=== PATIENT | female | born 1960 | race Caucasian/White ===

== ENCOUNTER 2021-09-27 10:00 | Observation (INO) ==
[2021-09-27] MEDS ORDERED: Naloxone 0.4 MG/ML INJ IVP PRN (10:59)
[2021-09-27] MEDS ORDERED: Melatonin 3 MG TABLET PO PRN (10:59)
[2021-09-27 11:49] LABS: Basophils % 0.3 %; Eosinophils # 0.5 K/mcL (0.0-0.6); Eosinophils % 4.8 %; Immature Granulocytes % 0.5 % (0-4); Lymphocytes # 3.1 K/mcL (0.6-4.6); Lymphocytes % 30.2 %; Mean Corpuscular HGB Conc 31.6 g/dL (31.6-35.5); Mean Corpuscular Hemoglobin 28.6 pg (28.0-33.3); Mean Corpuscular Volume 90.5 fL (83.0-100.0); Mean Platelet Volume 9.6 fL (9.4-12.4); Monocytes # 0.6 K/mcL (0.0-1.3); Platelet Count 270 K/mcL (140-400); Red Cell Distribution Width 14.9 % (11.5-14.5); Segmented Neutrophils % 58.2 %; White Blood Count 10.2 K/mcL (4.3-11.1)
[2021-09-27 12:08] LABS: Calcium 9.5 mg/dL (8.6-10.3); Magnesium 1.3 mg/dL (1.6-2.6); Potassium 3.9 mEq/L (3.5-5.1)
[2021-09-27] MEDS ORDERED: D5% in Water 1,000 ML IVC PRN (12:58)
[2021-09-27] MEDS ORDERED: *HR* Dextrose 50 % in Water (Syg) 50 ML SYRINGE IVP PRN (12:58)
[2021-09-27] MEDS ORDERED: Dextrose Gel 15 GM/37.5 ML TUBE PO PRN ×2 (12:58)
[2021-09-27] MEDS: Gabapentin 400 MG CAPSULE PO SCH ×2 (14:05→21:41)
[2021-09-27] MEDS: *HR* Metformin 500 MG TABLET PO SCH (16:43)
[2021-09-27] MEDS: traZODone 50 MG TABLET PO SCH (21:39)
[2021-09-27] MEDS: *HR* Dabigatran 150 MG CAPSULE PO SCH (21:41)
[2021-09-28 03:19] LABS: Magnesium 2.1 mg/dL (1.6-2.6); Potassium 3.6 mEq/L (3.5-5.1)
[2021-09-28] MEDS: lisinopriL 20 MG TABLET PO SCH (08:29)
[2021-09-28] MEDS: *HR* Metformin 500 MG TABLET PO SCH ×2 (08:36→17:38)
[2021-09-28] MEDS: *HR* Dabigatran 150 MG CAPSULE PO SCH ×2 (08:36→22:10)
[2021-09-28] MEDS: Gabapentin 400 MG CAPSULE PO SCH ×3 (08:36→22:10)
[2021-09-28] MEDS: Metoprolol XL (24 HR) Succ 50 MG TAB.ER.24H PO SCH (08:36)
[2021-09-28] MEDS: *HR* GlipiZIDE XL (24 HR) 10 MG TABLET PO SCH (08:36)
[2021-09-28] MEDS: Furosemide 20 MG TABLET PO SCH (08:36)
[2021-09-28] MEDS ORDERED: lisinopriL 20 MG TABLET PO SCH (09:00)
[2021-09-28] MEDS: traZODone 50 MG TABLET PO SCH (22:10)
[2021-09-28 23:01] VITALS: O2SAT 92
[2021-09-29 06:45] VITALS: TEMP 98.4
[2021-09-29 08:02] VITALS: BP 121/73; PULSE 86
[2021-09-29] MEDS: *HR* Dabigatran 150 MG CAPSULE PO SCH (08:18)
[2021-09-29] MEDS: Furosemide 20 MG TABLET PO SCH (08:18)
[2021-09-29] MEDS: *HR* GlipiZIDE XL (24 HR) 10 MG TABLET PO SCH (08:18)
[2021-09-29] MEDS: Gabapentin 400 MG CAPSULE PO SCH (08:18)
[2021-09-29] MEDS: lisinopriL 20 MG TABLET PO SCH (08:18)
[2021-09-29] MEDS: Metoprolol XL (24 HR) Succ 50 MG TAB.ER.24H PO SCH (08:18)
[2021-09-29] MEDS: *HR* Metformin 500 MG TABLET PO SCH (08:19)
== END 2021-09-29 12:29 | disposition home or self-care (01) ==
LOC: 3BNU
PROVIDERS: ADMIT Internal Medicine Clinical Cardiac Electrophysiology; ATTEND Internal Medicine Clinical Cardiac Electrophysiology

== ENCOUNTER 2021-11-01 18:33 | Inpatient (IN) ==
[2021-11-01 20:28] LABS: Basophils # 0.1 K/mcL (0.0-0.2); Basophils % 0.7 %; Eosinophils # 0.4 K/mcL (0.0-0.6); Eosinophils % 4.4 %; Hematocrit 34.5 % (35.3-44.9); Hemoglobin 10.9 g/dL (11.5-15.4); Immature Granulocytes % 0.4 % (0-4); Lymphocytes # 2.6 K/mcL (0.6-4.6); Lymphocytes % 26.3 %; Mean Corpuscular HGB Conc 31.6 g/dL (31.6-35.5); Mean Corpuscular Hemoglobin 29.1 pg (28.0-33.3); Mean Platelet Volume 9.5 fL (9.4-12.4); Monocytes # 0.7 K/mcL (0.0-1.3); Monocytes % 7.1 %; Platelet Count 248 K/mcL (140-400); Red Blood Count 3.75 M/mcL (3.82-4.97); Red Cell Distribution Width 15.3 % (11.5-14.5); Segmented Neutrophils % 61.1 %; White Blood Count 9.9 K/mcL (4.3-11.1)
[2021-11-01 20:52] LABS: Alanine Aminotransferase 15 Units/L (7-52); Albumin/Globulin Ratio 1.3 (1.1-2.2); Alkaline Phosphatase 53 Units/L (34-104); Aspartate Amino Transferase 16 Units/L (13-39); BUN/Creatinine Ratio 18 (6-26); Bilirubin,Total 0.5 mg/dL (0.3-1.0); Blood Urea Nitrogen 20 mg/dL (8-23); Calcium 9.5 mg/dL (8.6-10.3); Carbon Dioxide 29 mEq/L (23-29); Chloride 102 mEq/L (98-107); Globulin 3.2 g/dL (2.4-3.5); Glucose 74 mg/dL (70-105); Osmolality,Calculated 293 (280-300); Potassium 3.6 mEq/L (3.5-5.1); Sodium 141 mEq/L (136-145); Total Protein 7.2 g/dL (6.4-8.9); Troponin I < 0.03 ng/mL (< 0.04); eGFR For African Americans > 60 (> 60); eGFR For Non-African Americans 50 (> 60)
[2021-11-01] MEDS ORDERED: Naloxone 0.4 MG/ML INJ IVP PRN (23:26)
[2021-11-01] MEDS ORDERED: Melatonin 3 MG TABLET PO PRN (23:26)
[2021-11-01] MEDS ORDERED: Sennosides/Docusate Sodium TABLET PO PRN (23:28)
[2021-11-01] MEDS ORDERED: D5% in Water 1,000 ML IVC PRN (23:30)
[2021-11-01] MEDS ORDERED: *HR* Dextrose 50 % in Water (Syg) 50 ML SYRINGE IVP PRN (23:30)
[2021-11-01] MEDS ORDERED: Dextrose 4 GM Chewable Tablets PO PRN ×2 (23:30)
[2021-11-01 23:49] LABS: Influenza A PCR Negative (Negative); Influenza B PCR Negative (Negative); Resp. Syncytial Virus PCR Negative (Negative)
[2021-11-01 23:51] LABS: SARS-CoV-2 by PCR (In House) Negative (Negative)
[2021-11-02] MEDS ORDERED: Furosemide 40 MG/4 ML VIAL IVP ONE (00:09)
[2021-11-02] MEDS ORDERED: Ondansetron 4 MG/2 ML VIAL IVP PRN (00:26)
[2021-11-02 01:07] LABS: Basophils % 0.4 %; Eosinophils # 0.4 K/mcL (0.0-0.6); Eosinophils % 4.3 %; Hematocrit 34.1 % (35.3-44.9); Hemoglobin 10.6 g/dL (11.5-15.4); Immature Granulocytes % 0.3 % (0-4); Lymphocytes # 2.4 K/mcL (0.6-4.6); Lymphocytes % 25.4 %; Mean Corpuscular HGB Conc 31.1 g/dL (31.6-35.5); Mean Corpuscular Hemoglobin 28.2 pg (28.0-33.3); Mean Corpuscular Volume 90.7 fL (83.0-100.0); Monocytes # 0.7 K/mcL (0.0-1.3); Neutrophils # 5.9 K/mcL (1.6-8.9); Platelet Count 221 K/mcL (140-400); Red Blood Count 3.76 M/mcL (3.82-4.97); Red Cell Distribution Width 15.3 % (11.5-14.5); Segmented Neutrophils % 62.6 %; White Blood Count 9.4 K/mcL (4.3-11.1)
[2021-11-02 01:15] LABS: INR 1.4; Prothrombin Time 15.3 Seconds (9.4-12.1)
[2021-11-02 01:17] LABS: Activated Partial Thrombo Time 69.8 Seconds (26.0-36.0)
[2021-11-02 01:20] LABS: Alanine Aminotransferase 14 Units/L (7-52); Albumin 3.7 g/dL (3.5-5.7); Albumin/Globulin Ratio 1.3 (1.1-2.2); Alkaline Phosphatase 49 Units/L (34-104); Aspartate Amino Transferase 15 Units/L (13-39); BUN/Creatinine Ratio 18 (6-26); Bilirubin,Total 0.5 mg/dL (0.3-1.0); Blood Urea Nitrogen 19 mg/dL (8-23); Calcium 9.2 mg/dL (8.6-10.3); Carbon Dioxide 29 mEq/L (23-29); Chloride 103 mEq/L (98-107); Chol/HDL Ratio 3.6 (0-4.9); Cholesterol 122 mg/dL (< 200); Globulin 2.8 g/dL (2.4-3.5); Glucose 76 mg/dL (70-105); HDL Cholesterol 34 mg/dL (40-59); LDL Cholesterol,Calculated 53 mg/dL (< 100); Magnesium 1.4 mg/dL (1.6-2.6); Osmolality,Calculated 291 (280-300); Phosphorous 2.7 mg/dL (2.7-4.5); Potassium 3.6 mEq/L (3.5-5.1); Sodium 140 mEq/L (136-145); Total Protein 6.5 g/dL (6.4-8.9); Triglycerides 176 mg/dL (< 150); eGFR For African Americans > 60 (> 60); eGFR For Non-African Americans 53 (> 60)
[2021-11-02] MEDS: Acetaminophen 325 MG TABLET PO PRN ×2 (01:21→09:25)
[2021-11-02] MEDS: *HR* Dabigatran 150 MG CAPSULE PO SCH ×3 (01:21→20:24)
[2021-11-02] MEDS: Gabapentin 400 MG CAPSULE PO SCH ×4 (01:50→20:24)
[2021-11-02] MEDS ORDERED: Perflutren Lipid Microsphere 1.3 ML in 0.9 % Sodium Chloride 8.7 ML IVP PRN (02:11)
[2021-11-02] MEDS ORDERED: Magnesium Sulfate 1 GM/102 ML PIGGYBACK IVPB ONE (03:00)
[2021-11-02] MEDS: Insulin LISPRO 300 UNITS/3 ML VIAL SUBQ SCH ×3 (08:05→16:38)
[2021-11-02] MEDS: lisinopriL 20 MG TABLET PO SCH (09:21)
[2021-11-02] MEDS: Metoprolol XL (24 HR) Succ 50 MG TAB.ER.24H PO SCH (09:21)
[2021-11-03] MEDS: Metoprolol XL (24 HR) Succ 50 MG TAB.ER.24H PO SCH (08:44)
[2021-11-03] MEDS: Gabapentin 400 MG CAPSULE PO SCH ×3 (08:45→20:21)
[2021-11-03] MEDS: *HR* Dabigatran 150 MG CAPSULE PO SCH ×2 (08:45→20:21)
[2021-11-03] MEDS: lisinopriL 20 MG TABLET PO SCH (08:45)
[2021-11-03] MEDS: Insulin LISPRO 300 UNITS/3 ML VIAL SUBQ SCH ×3 (08:45→16:56)
[2021-11-03 08:48] LABS: Basophils # 0.1 K/mcL (0.0-0.2); Basophils % 0.6 %; Eosinophils # 0.3 K/mcL (0.0-0.6); Eosinophils % 3.7 %; Hematocrit 34.5 % (35.3-44.9); Hemoglobin 10.8 g/dL (11.5-15.4); Immature Granulocytes % 0.4 % (0-4); Lymphocytes # 1.8 K/mcL (0.6-4.6); Lymphocytes % 20.5 %; Mean Corpuscular HGB Conc 31.3 g/dL (31.6-35.5); Mean Corpuscular Hemoglobin 28.2 pg (28.0-33.3); Mean Corpuscular Volume 90.1 fL (83.0-100.0); Mean Platelet Volume 9.9 fL (9.4-12.4); Monocytes # 0.7 K/mcL (0.0-1.3); Neutrophils # 5.7 K/mcL (1.6-8.9); Platelet Count 246 K/mcL (140-400); Red Blood Count 3.83 M/mcL (3.82-4.97); Red Cell Distribution Width 15.4 % (11.5-14.5); Segmented Neutrophils % 66.8 %; White Blood Count 8.5 K/mcL (4.3-11.1)
[2021-11-03 08:56] LABS: Albumin 3.7 g/dL (3.5-5.7); Albumin/Globulin Ratio 1.4 (1.1-2.2); Bilirubin,Total 0.6 mg/dL (0.3-1.0); Calcium 9.3 mg/dL (8.6-10.3); Globulin 2.6 g/dL (2.4-3.5); Magnesium 1.5 mg/dL (1.6-2.6); Potassium 3.5 mEq/L (3.5-5.1); Total Protein 6.3 g/dL (6.4-8.9)
[2021-11-03] MEDS ORDERED: Furosemide 40 MG/4 ML VIAL IVP ONE (09:00)
[2021-11-04 05:40] LABS: Basophils # 0.1 K/mcL (0.0-0.2); Basophils % 0.6 %; Eosinophils # 0.4 K/mcL (0.0-0.6); Eosinophils % 4.6 %; Hematocrit 31.9 % (35.3-44.9); Hemoglobin 10.1 g/dL (11.5-15.4); Immature Granulocytes % 0.3 % (0-4); Lymphocytes # 2.5 K/mcL (0.6-4.6); Lymphocytes % 25.6 %; Mean Corpuscular HGB Conc 31.7 g/dL (31.6-35.5); Mean Corpuscular Hemoglobin 28.9 pg (28.0-33.3); Mean Corpuscular Volume 91.1 fL (83.0-100.0); Mean Platelet Volume 10.1 fL (9.4-12.4); Monocytes # 0.8 K/mcL (0.0-1.3); Monocytes % 8.5 %; Neutrophils # 5.8 K/mcL (1.6-8.9); Platelet Count 245 K/mcL (140-400); Red Cell Distribution Width 15.4 % (11.5-14.5); Segmented Neutrophils % 60.4 %; White Blood Count 9.6 K/mcL (4.3-11.1)
[2021-11-04 06:06] LABS: Albumin 3.6 g/dL (3.5-5.7); Albumin/Globulin Ratio 1.5 (1.1-2.2); Bilirubin,Total 0.5 mg/dL (0.3-1.0); Calcium 9.4 mg/dL (8.6-10.3); Globulin 2.4 g/dL (2.4-3.5); Potassium 4.1 mEq/L (3.5-5.1)
[2021-11-04] MEDS: Insulin LISPRO 300 UNITS/3 ML VIAL SUBQ SCH ×2 (07:55→13:09)
[2021-11-04] MEDS ORDERED: 0.9 % Sodium Chloride 1,000 ML IVC SCH (08:15)
[2021-11-04] MEDS: Metoprolol XL (24 HR) Succ 50 MG TAB.ER.24H PO SCH (09:37)
[2021-11-04] MEDS: Gabapentin 400 MG CAPSULE PO SCH (09:37)
[2021-11-04] MEDS: *HR* Dabigatran 150 MG CAPSULE PO SCH (09:37)
[2021-11-04] MEDS: lisinopriL 20 MG TABLET PO SCH (09:37)
[2021-11-04 11:37] LABS: Magnesium 1.7 mg/dL (1.6-2.6)
[2021-11-04 14:43] LABS: Calcium 9.4 mg/dL (8.6-10.3); Potassium 3.8 mEq/L (3.5-5.1)
[2021-11-04 15:40] VITALS: BP 117/79; PULSE 99; TEMP 98.5; O2SAT 95
== END 2021-11-04 17:11 | disposition home or self-care (01) | DRG 291 ==
LOC: 3BNU 18:33 → EMEROOARM 18:33 → 3BNU 23:20
PROVIDERS: ADMIT Nurse Practitioner; ATTEND Student in an Organized Health Care Education/Training Program